=== PATIENT | male | born 1955 | race Caucasian/White ===

== ENCOUNTER 2017-04-02 12:25 | Emergency (ER) | payer OTHER ==
[2017-04-02 13:30] LABS: Basophils % (Auto) 0.4 % (0.0-1.8); Eosinophils % (Auto) 1.4 % (0.0-4.3); Hematocrit 29.7 % (35.5-45.6); Hemoglobin 9.9 gm/dl (11.8-15.2); Mean Corpuscular HGB Conc 33 % (32-34); Mean Corpuscular Hemoglobin 31 pg (28-32); Mean Corpuscular Volume 92 fl (84-94); Platelet Count 200 K/mm3 (140-440); Red Blood Count 3.22 M/mm3 (3.65-5.03); Red Cell Distribution Width 15.8 % (13.2-15.2); White Blood Count 10.2 K/mm3 (4.5-11.0)
[2017-04-02 13:39] LABS: INR 1.05 (0.87-1.13)
[2017-04-02 13:40] LABS: Partial Thromboplastin Time 32.5 Sec. (24.2-36.6)
--- NOTE | 2017-04-02 13:44 | Emergency Department Report ---
ED General Adult HPI - General Chief complaint: Abdominal Pain Stated complaint: INTERNAL BLEEDING Time Seen by Provider: 04/02/17 13:26 Source: patient Mode of arrival: Ambulatory Limitations: No Limitations - History of Present Illness Initial comments: This is a 61-year-old man from [place] who is visiting the [facility]. He was previously in [place] when he had the onset of black stools on 03/29/2017. He was transfused 3 units of blood and [place] and states that his hemoglobin was about 8.4 on discharge yesterday. His blood count is 6.5 review his previous medical records. He was found to have a duodenal ulcer on her endoscopy. He presents with his . They state that they would like to get some reassurance and is safe for them to travel. They are driving to [place] they state. This morning he did some minimal black stool. They state they believe this was from the bowel prep that he had for a colonoscopy and just residual from his bleeding on the third they believe. It was small in quantity. The patient has had no nausea no vomiting. He feels somewhat weak but not acutely so. He does not complain of any abdominal pain whatsoever. -: Gradual, days(s) Severity scale (0 -10): 0 Associated Symptoms: denies other symptoms Treatments Prior to Arrival: other (treatment for peptic ulcer disease) - Related Data Allergies Allergy/AdvReac Type Severity Reaction Status Date / Time No Known Allergies Allergy Unverified 04/02/17 12:46 ED Review of Systems ROS: Stated complaint: INTERNAL BLEEDING Other details as noted in HPI Constitutional: denies: chills, fever Eyes: denies: eye pain, eye discharge, vision change ENT: denies: ear pain, throat pain Respiratory: denies: cough, shortness of breath, wheezing Cardiovascular: denies: chest pain, palpitations Endocrine: no symptoms reported Gastrointestinal: as per HPI, melena. denies: abdominal pain, nausea, diarrhea Genitourinary: denies: urgency, dysuria Musculoskeletal: denies: back pain, joint swelling, arthralgia Skin: denies: rash, lesions Neurological: denies: headache, weakness, paresthesias Psychiatric: denies: anxiety, depression Hematological/Lymphatic: denies: easy bleeding, easy bruising ED Past Medical Hx - Past Medical History Previous Medical History?: No Additional medical history: stentx2 - Social History Smoking Status: Never Smoker ED Physical Exam - General Limitations: No Limitations General appearance: alert, in no apparent distress - Head Head exam: Present: atraumatic, normocephalic - Eye Eye exam: Present: normal appearance, PERRL, EOMI. Absent: scleral icterus - ENT ENT exam: Present: normal exam, mucous membranes moist - Neck Neck exam: Present: normal inspection. Absent: tenderness, meningismus - Respiratory Respiratory exam: Present: normal lung sounds bilaterally. Absent: respiratory distress - Cardiovascular Cardiovascular Exam: Present: regular rate, normal rhythm. Absent: systolic murmur, diastolic murmur, rubs, gallop - GI/Abdominal GI/Abdominal exam: Present: soft, normal bowel sounds. Absent: distended, tenderness, guarding, rebound, rigid, organomegaly, mass, bruit, pulsatile mass , hernia - Rectal Rectal exam: Present: deferred - Extremities Exam Extremities exam: Present: normal inspection - Back Exam Back exam: Present: normal inspection - Neurological Exam Neurological exam: Present: alert, oriented X3, CN II-XII intact. Absent: motor sensory deficit - Psychiatric Psychiatric exam: Present: normal affect, normal mood - Skin Skin exam: Present: warm, dry, intact, normal color. Absent: rash ED Course Vital Signs 04/02/17 12:40 Temperature 97.6 F Pulse Rate 68 Respiratory 16 Rate Blood Pressure 110/67 Blood Pressure 110/67 [Left] O2 Sat by Pulse 99 Oximetry - Reevaluation(s) Reevaluation #1: Patient doing well on reexam. Discussed with Dr. Keene 04/02/17 15:46 ED Medical Decision Making - Lab Data Result diagrams: 04/02/17 13:06 04/02/17 13:06 Laboratory Results - last 24 hr 04/02/17 04/02/17 13:06 13:06 WBC 10.2 RBC 3.22 L Hgb 9.9 L Hct 29.7 L MCV 92 MCH 31 MCHC 33 RDW 15.8 H Plt Count 200 Lymph % (Auto) 25.5 [place] % (Auto) 4.4 Eos % (Auto) 1.4 Baso % (Auto) 0.4 Lymph # 2.6 [place] # 0.5 Eos # 0.1 Baso # 0.0 Seg Neutrophils % 68.3 Seg Neutrophils # 7.0 PT 14.2 INR 1.05 APTT 32.5 - Radiology Data Radiology results: report reviewed interpreted by me: I believe the findings are less consistent with enterocolitis than those after bowel prep and after colonoscopy. I do not believe the patient has enterocolitis. Hemangiomas as per radiologist. Nothing requiring emergent hospitalization Critical care attestation.: If time is entered above; I have spent that time in minutes in the direct care of this critically ill patient, excluding procedure time. ED Disposition Clinical Impression: Duodenal ulcer GI bleeding Qualifiers: GI bleed type/associated pathology: melena Qualified Code(s): K92.1 - Melena Anemia Qualifiers: Anemia type: iron deficiency Iron deficiency anemia type: chronic blood loss Qualified Code(s): D50.0 - Iron deficiency anemia secondary to blood loss ( chronic) Disposition: TO HOME OR SELFCARE Is pt being admited?: No Does the pt Need Aspirin: No Condition: Stable Instructions: Peptic Ulcer (ED), Gastrointestinal Bleeding (ED) Additional Instructions: Continue medications and instructions as per GI specialist in [place], [place]. This scan showed some benign things but nothing that I think would be associated with continued bleeding. Follow-up on your colonoscopy report. Seek emergency care should you have any acute change or problem or signs of significant bleeding/black stools, weakness fever or chills. Referrals: PRIMARY CARE, [Primary Care Provider] - 3-5 Days Time of Disposition: 15:53 Print Language: POLISH
[2017-04-02 13:47] LABS: Alanine Aminotransferase 28 units/L (7-56); Albumin 3.4 g/dL (3.9-5); Albumin/Globulin Ratio 1.9 %; Alkaline Phosphatase 42 units/L (35-129); Anion Gap 13 mmol/L; BUN/Creatinine Ratio 20; Blood Urea Nitrogen 18 mg/dL (9-20); Calcium 8.1 mg/dL (8.4-10.2); Carbon Dioxide 28 mmol/L (22-30); Glucose 98 mg/dL (75-100); Lipase 30 units/L (13-60); Potassium 4.1 mmol/L (3.6-5.0); Sodium 140 mmol/L (137-145); Total Protein 5.2 g/dL (6.3-8.2)
[2017-04-02] MEDS: NACL 0.9% 1000 ML 1,000 ML IV ONE (14:53)
[2017-04-02] MEDS: NACL ONE (15:13)
--- NOTE | 2017-04-02 15:32 | Cat Scan Report ---
FINAL REPORT PROCEDURE: CT ABDOMEN PELVIS W CON TECHNIQUE: Computerized axial tomography of the abdomen and pelvis was performed after the IV injection of iodinated nonionic contrast. HISTORY: abd pain recent GIB COMPARISON: No prior studies are available for comparison. FINDINGS: Liver demonstrates 2 irregular hypodense lesions demonstrating centripetal enhancement measuring 2.6 x 1.5 centimeters and a 2.1 x 1.3 centimeters located in segments 8 and 5 respectively. Spleen, pancreas and adrenal glands are within normal limits. Bilateral kidneys demonstrate uniform enhancement without hydronephrosis. Aorta is of normal caliber. There is no free fluid or free air. Gallbladder is unremarkable. Small bowel loops are within normal limits. Air-fluid levels are noted colon. Rectum is filled with fluid. Appendix is normal. Mild to moderate prostatomegaly is identified. Mild degree degenerative changes are noted involving the lumbar spine. IMPRESSION: Air-fluid levels in the colon most likely represent enterocolitis. Mild to moderate prostatomegaly. Two centripetally enhancing lesions of right lobe liver are consistent with hemangiomas.
[2017-04-02 16:13] VITALS: BP 112/62
== END 2017-04-02 16:14 | disposition home or self-care (01) ==
LOC: ED 12:25
DX: K92.1 Melena (principal); D50.0 Iron deficiency anemia secondary to blood loss (chronic); K26.9 Duodenal ulcer, unspecified as acute or chronic, without hemorrhage or perforation; R10.9 Unspecified abdominal pain
CPT/HCPCS: 36415; 74177; 80053; 83690; 85025; 85610; 85730; 86850; 86900; 86901; 93005; 93010; 99284; J7030; Q9967